=== PATIENT | male | born 1935 | race Caucasian/White ===

== ENCOUNTER → 2017-07-09 | Outpatient (CLI) | payer OTHER ==
[~2017-07-09] MED LIST: ASPIRIN EC81 M1 PO; ASPIRIN81 M2 PO; AUGMENTIN875 M1 PO; BAYER ASPIRIN325 M1 PO; COREG3.125 MG PO; DSS100 MG PO; FLOMAX0.4 M1 PO; HYDROCODON-ACE1 EAC7 PO; KEFLEX500 M1 PO; LIPITOR40 MG PO; MELATONIN3 M4 PO; NAPROSYN-EC500 M1 PO; NORCO 10-325 TA1 TAB PO; OMEPRAZOLE20 M1 PO; PERCOCET 5-3251 TAB PO; SENNA S TABLET1 TAB PO; ZOCOR80 MG PO
[2017-07-09 11:39] LABS: CREATININE SERUM 1.2 mg/dL (0.6-1.4); GLOM FILT RATE Estimated 55.6 mL/min (>60)
== END | disposition home or self-care (01) ==
LOC: CLAB 10:17
PROVIDERS: Surgery Vascular Surgery
DX: I73.9 Peripheral vascular disease, unspecified (principal)
CPT/HCPCS: 36415; 82565